=== PATIENT | male | born 1990 | race American Indian/Alaskan Native ===

== ENCOUNTER 2019-07-06 13:11 | Emergency (ER) | payer SELFPAY ==
[2019-07-06 13:52] VITALS: BP 107/70
--- NOTE | 2019-07-06 14:25 | XRay Report ---
Right knee, 2 views INDICATION: right knee pain. COMPARISON: None. IMPRESSION: No acute osseous or soft tissue abnormality. No significant DJD. Signer Name: Dewayne Brown Jr, MD Signed: 07/06/2019 2:20 PM Workstation Name: [id number]
--- NOTE | 2019-07-06 15:37 | Emergency Department Report ---
HPI - General Chief Complaint: Dental/Oral Time Seen by Provider: 07/06/19 15:31 ED Past Medical Hx - Past Medical History Previous Medical History?: No - Surgical History Past Surgical History?: Yes Additional Surgical History: RT LEG SURGERY - Family History Family history: no significant - Social History Smoking Status: Never Smoker Substance Use Type: None - Medications Home Medications: Home Medications Medication Instructions Recorded Confirmed Last Taken Type Amoxicillin [Trimox CAP] 500 mg PO BID #20 capsule 07/06/19 Unknown Rx Ibuprofen [Motrin] 800 mg PO Q8HR PRN #30 tablet 07/06/19 Unknown Rx ED Review of Systems ROS: Stated complaint: TOOTHACHE/RT KNEE PAIN Other details as noted in HPI Comment: All other systems reviewed and negative Physical Exam - Physical Exam Vital Signs: Vital Signs 07/06/19 13:50 Temperature 98.5 F Pulse Rate 94 H Respiratory 15 Rate Blood Pressure 107/70 [Left] O2 Sat by Pulse 97 Oximetry Physical Exam: ALERT AND ORIENTED DENTAL PAIN NO ABSCESS NO LUDWIGS NO GUM DISEASE NO OBVIOUS CARIES BUT THERE IS SWELLING OVER MANDIBLE AREA. ABC INTACT TAKING PO CONTROLLING SECRETIONS NO TRISMUS S1S2 LUNGS CTA NO PAIN OVER JOINT LINES OF R KNEE NO SWELLING NO EFFUSION PLUS 2 DP AMBULATORY SP INJURY AT AGE OF 7 ED Course Vital Signs 07/06/19 13:50 Temperature 98.5 F Pulse Rate 94 H Respiratory 15 Rate Blood Pressure 107/70 [Left] O2 Sat by Pulse 97 Oximetry ED Medical Decision Making - Radiology Data Radiology results: report reviewed, image reviewed - Medical Decision Making DENTAL PAIN WITHOUT ABSCESS/TRISMUS A/C KNEE PAIN WITH NORMAL XRAY MEDICATED IN ER WITH BICILLIN EDUCATED ON FOLLOW UP DC HOME WITH DC PLAN OF CARE Vital Signs 07/06/19 13:50 Temperature 98.5 F Pulse Rate 94 H Respiratory 15 Rate Blood Pressure 107/70 [Left] O2 Sat by Pulse 97 Oximetry - Differential Diagnosis RO FX KNEE/ RO ABSCESS/ DENTAL CARIES Critical care attestation.: If time is entered above; I have spent that time in minutes in the direct care of this critically ill patient, excluding procedure time. ED Disposition Clinical Impression: Pain, dental, Chronic knee pain Disposition: DC-01 TO HOME OR SELFCARE Is pt being admited?: No Does the pt Need Aspirin: No Condition: Stable Instructions: Toothache (ED) Additional Instructions: XRAY NORMAL FOLLOW UP WITH DR YAP SHOULD PAIN PERSIST FOLLOW UP WITH DENTIST FOR DENTAL CARIES MEDS ORDERED TODAY TYLENOL CAN ALSO BE USED FOR PAIN Referrals: KEVAN YAP MD [Staff Physician] - 3-5 Days Time of Disposition: 15:43
[2019-07-06] MEDS ORDERED: BICILLIN L-A IM ONE (15:46)
[2019-07-06] MEDS ORDERED: IBUPROFEN PO ONE (15:46)
== END 2019-07-06 16:40 | disposition home or self-care (01) ==
LOC: ED 13:11
DX: K08.89 Other specified disorders of teeth and supporting structures (principal); M25.561 Pain in right knee; G89.29 Other chronic pain; Z98.890 Other specified postprocedural states; Z79.899 Other long term (current) drug therapy
CPT/HCPCS: 73560; 96372; 99283; J0561

== ENCOUNTER 2020-09-02 16:25 | Emergency (ER) | payer SELFPAY ==
[2020-09-02 16:33] VITALS: BP 124/49
[2020-09-02] MEDS ORDERED: predniSONE 20 MG TAB PO ONE (19:36)
[2020-09-02] MEDS ORDERED: ACETAMINOPHEN 325 MG TAB PO ONE (19:37)
--- NOTE | 2020-09-02 20:16 | XRay Report ---
XR chest routine 2V INDICATION / CLINICAL INFORMATION: cough COMPARISON: None available. FINDINGS: SUPPORT DEVICES: None. HEART / MEDIASTINUM: No significant abnormality. LUNGS / PLEURA: Lungs are clear. Costophrenic sulci are sharp. No pneumothorax. ADDITIONAL FINDINGS: No significant additional findings. IMPRESSION: 1. No acute findings. Signer Name: Venkata Arrieta MD Signed: 09/02/2020 8:11 PM Workstation Name: [id number]
--- NOTE | 2020-09-02 20:29 | Emergency Department Report ---
- General Chief Complaint: Chest Pain Stated Complaint: CHEST PAIN/SOB Source: patient Mode of arrival: Ambulatory Limitations: No Limitations - History of Present Illness Initial Comments: Patient is a 30-year-old -[place] male with a history of tobacco abuse who presents to the ED with acute onset persistent nasal and sinus congestion, persistent dry cough with pleuritic chest pain for the last 5 days. Patient states that the symptoms are worse with deep inhalation or cough especially the pleuritic chest pain. Patient denies dizziness, syncope, shortness of breath, nausea, vomiting, sore throat, abdominal pain, fever, chills, headache, back pain, dysuria, urinary frequency and urgency or change in vision and ear pain. MD Complaint: cough, rhinorrhea, nasal congestion, sinus pain, other (pleuritic chest pain) -: Sudden, days(s) (5) Severity: moderate Severity scale (0 -10): 4 Quality: sharp, aching Consistency: constant Improves With: nothing Worsens With: deep breaths, other (cough) Associated Symptoms: denies other symptoms, rhinorrhea, nasal congestion, cough, chest pain (pleuritic ). denies: fever, chills, myalgias, diaphoresis, sore throat, stiff neck, shortness of breath, abdominal pain, nausea, vomiting, diarrhea, dysuria, rash, confusion, right sweats, weight loss, epistaxis, hoarseness, ear pain Treatments Prior to Arrival: none - Related Data Previous Rx's Medication Instructions Recorded Last Taken Type Amoxicillin [Trimox CAP] 500 mg PO BID #20 capsule 07/06/19 Unknown Rx Ibuprofen [Motrin] 800 mg PO Q8HR PRN #30 tablet 07/06/19 Unknown Rx Azithromycin [Zithromax Z-SHANELLE] 250 mg PO DAILY #6 tablet 09/02/20 Unknown Rx Benzonatate [Tessalon Perles] 100 mg PO Q8HR #24 capsule 09/02/20 Unknown Rx Cetirizine HCl [Zyrtec 10mg tab] 10 mg PO DAILY #30 tablet 09/02/20 Unknown Rx Ibuprofen [Motrin] 600 mg PO Q8H PRN #20 tablet 09/02/20 Unknown Rx predniSONE [Deltasone] 40 mg PO QDAY #10 tab 09/02/20 Unknown Rx Allergies Allergy/AdvReac Type Severity Reaction Status Date / Time No Known Allergies Allergy Unverified 07/06/19 13:14 ED Review of Systems ROS: Stated complaint: CHEST PAIN/SOB Other details as noted in HPI Constitutional: denies: chills, fever Eyes: denies: eye pain, eye discharge, vision change ENT: congestion. denies: ear pain, throat pain Respiratory: cough. denies: shortness of breath, SOB with exertion, wheezing Cardiovascular: chest pain (Pleuritic chest pain). denies: palpitations Endocrine: no symptoms reported Gastrointestinal: denies: abdominal pain, nausea, vomiting, diarrhea Genitourinary: denies: urgency, dysuria Musculoskeletal: denies: back pain, joint swelling, arthralgia Skin: denies: rash, lesions Neurological: denies: headache, weakness, paresthesias Psychiatric: denies: anxiety, depression Hematological/Lymphatic: denies: easy bleeding, easy bruising ED Past Medical Hx - Past Medical History Previous Medical History?: No - Surgical History Past Surgical History?: Yes Additional Surgical History: RT LEG SURGERY - Social History Smoking Status: Current Every Day Smoker - Medications Home Medications: Home Medications Medication Instructions Recorded Confirmed Last Taken Type Amoxicillin [Trimox CAP] 500 mg PO BID #20 capsule 07/06/19 Unknown Rx Ibuprofen [Motrin] 800 mg PO Q8HR PRN #30 tablet 07/06/19 Unknown Rx Azithromycin [Zithromax Z-SHANELLE] 250 mg PO DAILY #6 tablet 09/02/20 Unknown Rx Benzonatate [Tessalon Perles] 100 mg PO Q8HR #24 capsule 09/02/20 Unknown Rx Cetirizine HCl [Zyrtec 10mg tab] 10 mg PO DAILY #30 tablet 09/02/20 Unknown Rx Ibuprofen [Motrin] 600 mg PO Q8H PRN #20 tablet 09/02/20 Unknown Rx predniSONE [Deltasone] 40 mg PO QDAY #10 tab 09/02/20 Unknown Rx ED Physical Exam - General Limitations: No Limitations General appearance: alert, in no apparent distress - Head Head exam: Present: atraumatic, normocephalic, normal inspection - Eye Eye exam: Present: normal appearance, PERRL, EOMI Pupils: Present: normal accommodation - ENT ENT exam: Present: normal orophraynx, mucous membranes moist, TM's normal bilaterally, normal external ear exam, other (Grossly congested nasal passages) - Neck Neck exam: Present: normal inspection, full ROM. Absent: tenderness, lymphadenopathy - Respiratory Respiratory exam: Present: normal lung sounds bilaterally. Absent: respiratory distress, wheezes, rales, rhonchi, chest wall tenderness, accessory muscle use, decreased breath sounds, prolonged expiratory - Cardiovascular Cardiovascular Exam: Present: regular rate, normal rhythm, normal heart sounds. Absent: systolic murmur, diastolic murmur, rubs, gallop - GI/Abdominal GI/Abdominal exam: Present: soft, normal bowel sounds. Absent: tenderness, guarding, rebound, hyperactive bowel sounds, hypoactive bowel sounds, organomegaly - Extremities Exam Extremities exam: Present: normal inspection, full ROM, normal capillary refill - Back Exam Back exam: Present: normal inspection, full ROM. Absent: tenderness, CVA tenderness (R), CVA tenderness (L), muscle spasm, paraspinal tenderness, vertebral tenderness - Neurological Exam Neurological exam: Present: alert, oriented X3, CN II-XII intact, normal gait, reflexes normal - Psychiatric Psychiatric exam: Present: normal affect, normal mood - Skin Skin exam: Present: warm, dry, intact, normal color. Absent: rash ED Course Vital Signs 09/02/20 16:31 Temperature 98.9 F Pulse Rate 95 H Respiratory 20 Rate Blood Pressure 124/49 O2 Sat by Pulse 95 Oximetry ED Medical Decision Making - Radiology Data Radiology results: report reviewed, image reviewed Findings [address] [address] XRay Report Signed Patient: SANDRA LOVING MR# : [id number] : 1990 Acct:[id number] Age/Sex: 30 / M ADM Date: 09/02/20 Loc: ED Attending Dr: Ordering Physician: DOMINGO CACERES Date of Service: 09/02/20 Procedure(s): XR chest routine 2V Accession Number(s): [id number] cc: DOMINGO CACERES Fluoro Time In Minutes: XR chest routine 2V INDICATION / CLINICAL INFORMATION: cough COMPARISON: None available. FINDINGS: SUPPORT DEVICES: None. HEART / MEDIASTINUM: No significant abnormality. LUNGS / PLEURA: Lungs are clear. Costophrenic sulci are sharp. No pneumothorax. ADDITIONAL FINDINGS: No significant additional findings. IMPRESSION: 1. No acute findings. Signer Name: Venkata Arrieta MD Signed: 09/02/2020 8:11 PM Workstation Name: [id number] Transcribed By: CS Dictated By: Vnekata Arrieta MD Electronically Authenticated By: Venkata Arrieta MD Signed Date/Time: 09/02/202010 DD/ 10 TD/TT: - Medical Decision Making This is a 30-year-old -[place] male with a history of tobacco abuse who presents to the ED with acute onset persistent nasal and sinus congestion, persistent dry cough with pleuritic chest pain for the last 5 days. Patient states that the symptoms are worse with deep inhalation or cough especially the pleuritic chest pain. In the ED, patient is alert and oriented x3 and is not in distress. Patient was treated for pain and also given oral steroids in the ED. Chest x-ray shows no acute cardiopulmonary abnormalities or pneumonitis. Patient was advised on the importance of quitting tobacco abuse to minimize his symptoms. Patient verbalized understanding. Patient was therefore discharged home on medications and advised to follow-up with his primary care physician in 5 to 7 days for reevaluation or return to the ED immediately if symptoms get worse. - Differential Diagnosis Bronchitis; Pneumonia; URI; Sinusitis Critical care attestation.: If time is entered above; I have spent that time in minutes in the direct care of this critically ill patient, excluding procedure time. ED Disposition Clinical Impression: Acute upper respiratory infection Acute bronchitis Qualifiers: Bronchitis organism: unspecified organism Qualified Code(s): J20.9 - Acute bron chitis, unspecified Disposition: DC-01 TO HOME OR SELFCARE Is pt being admited?: No Does the pt Need Aspirin: No Condition: Stable Instructions: Acute Bronchitis (ED), Upper Respiratory Infection, Adult, [id number], Acute Bronchitis, Adult, [id number] Additional Instructions: Chest x-ray shows no acute cardiopulmonary abnormalities or pneumonitis. Therefore take medications with food, drink plenty of fluids and follow-up with your primary care physician in 5 to 7 days for reevaluation. Return to the ED immediately if symptoms get worse. Prescriptions: predniSONE [Deltasone] 40 mg PO QDAY #10 tab Ibuprofen [Motrin] 600 mg PO Q8H PRN #20 tablet PRN Reason: Pain Benzonatate [Tessalon Perles] 100 mg PO Q8HR #24 capsule Azithromycin [Zithromax Z-SHANELLE] 250 mg PO DAILY #6 tablet Cetirizine HCl [Zyrtec 10mg tab] 10 mg PO DAILY #30 tablet Referrals: [facility] [Provider Group] - 7-10 days Time of Disposition: 20:32 Print Language: ANGUILLAN
== END 2020-09-02 20:50 | disposition home or self-care (01) ==
LOC: ED 16:25
DX: J06.9 Acute upper respiratory infection, unspecified (principal); J20.9 Acute bronchitis, unspecified; F17.200 Nicotine dependence, unspecified, uncomplicated; Z79.1 Long term (current) use of non-steroidal anti-inflammatories (NSAID); Z79.2 Long term (current) use of antibiotics; Z79.899 Other long term (current) drug therapy
CPT/HCPCS: 71046; 93005; 99283; J7512